=== PATIENT | male | born 1965 | race African-American/Black ===

== ENCOUNTER 2020-04-08 17:14 | Emergency (ER) | payer SELFPAY | END 2020-04-08 19:56 | disposition home or self-care (01) | LOC: ERS 17:14 | DX: I10 Essential (primary) hypertension (principal); R51.9 Headache, unspecified; F17.210 Nicotine dependence, cigarettes, uncomplicated; Z79.899 Other long term (current) drug therapy | CPT/HCPCS: 99283 ==